=== PATIENT | female | born 1965 | race Caucasian/White ===

== ENCOUNTER 2017-08-27 11:01 | Observation (INO) ==
--- NOTE | 2017-08-27 11:15 | Emergency Department Note ---
Disposition Clinical Impression: Hyperglycemia Cellulitis Qualifiers: Site of cellulitis: buttock Qualified Code(s): L03.317 - Cellulitis of buttock Disposition: Admitted As Inpatient Condition: Fair SOB HPI - General Chief Complaint: ED General Medical Stated Complaint: "TAMMY, Possible DVT" Time Seen by Provider: 08/27/17 11:05 Source: patient, EMS, other (urgent care report) Mode of arrival: EMS Limitations: no limitations Nursing Notes Reviewed: Yes Vital Signs Reviewed: Yes - History of Present Illness Patient presents to the ED via EMS on referral from urgent care for chest discomfort and shortness of breath. Per urgent care report from Dr. Herzog patient is being sent appear for further evaluation of possible PE given a history of a recent superficial thrombosis and new onset chest pain and shortness of breath. Patient states she has been feeling short of breath since yesterday evening. She does have a history of COPD and a nebulizer treatment last night and again this morning without improvement. This morning she started experiencing chest discomfort that she describes as a intermittent squeezing sensation that is midsternal in location. She rates it an 8 out of 10. She states her shortness of breath worsens with exertion. Chest pain does not change. She reports feeling nauseous and lightheaded earlier but the symptoms are now gone. She never experienced any emesis. She reports some palpitations a week ago but none today. No fever or chills. She also reports that she has a "sore" on her buttocks that has been seeping. It has been going on for 2 weeks. States she has been cleaning the area with warm washcloth and applying an [id number] yeast cream that she got from the pharmacy without improvement. Patient has a history of COPD and CHF as well as hypertension. She wears 2 L of oxygen at home at night. Patient reports she has had some swelling in her right leg for a few weeks that has since improved. Review of records show she was seen here on 08/03 for the swelling. She had a negative d- dimer at that time and was given a shot shot of Lovenox. She had a right lower extremity venous duplex performed on 08/10 which showed only a superficial thrombosis in the lesser saphenous vein. Patient states she was told by the ED physician on the to start taking 81 mg of aspirin daily which she has been doing. She has not seen her PCP for follow-up since that time. She has no history of prior DVT or PE. - Related Data Home Medications Medication Instructions Recorded Confirmed Albuterol Sulfate [Ventolin Hfa] 2 puff IH Q4H PRN 01/24/16 08/27/17 Fluticasone Propionate Nasal 2 spray NS HS 01/24/16 08/27/17 [Flonase] Oxygen 2 l NS HS 04/17/16 08/27/17 Acetaminophen [Tylenol] 500 mg PO Q6HR PRN 08/10/16 08/27/17 Albuterol Neb [Proventil Neb] 2.5 mg IH Q4H PRN 08/10/16 08/27/17 Fluticasone/Vilanterol [Breo 1 puff IH DAILY 08/10/16 08/27/17 Ellipta 200-25 Mcg INH] Meloxicam [Mobic] 15 mg PO DAILY 08/10/16 08/27/17 Tiotropium [place] [Spiriva 2 puff IH DAILY 08/10/16 08/27/17 Respimat] Aspirin Enteric Coated [Aspirin EC] 81 mg PO DAILY 08/27/17 08/27/17 Previous Rx's Medication Instructions Recorded HYDROcodone/Acet 5/325 mg [[place] 1 tab PO Q6H 4 Days #14 tab 08/03/17 5-325 mg] Allergies Allergy/AdvReac Type Severity Reaction Status Date / Time Influenza Virus Vaccines Allergy Difficulty Verified 08/27/17 10:05 Breathing Pneumococcal Vaccine Allergy Difficulty Verified 08/27/17 10:05 Breathing Oxycodone AdvReac Dizziness Verified 08/27/17 10:05 Constitutional: Denies: fever, chills, weakness, weight change Eyes: Denies: eye pain, eye discharge, vision change ENT ED: Denies: ear pain, throat pain, dental pain, hearing loss, epistaxis, congestion, dysphagia Cardiovascular: Reports: as per HPI, chest pain, dyspnea on exertion. Denies: palpitations, edema, syncope Respiratory: Reports: cough, dyspnea. Denies: wheezes, hemoptysis, stridor, sputum production Gastrointestinal: Reports: nausea. Denies: abdominal pain, vomiting, diarrhea, constipation, hematemesis, melena, hematochezia Genitourinary: Denies: dysuria, frequency, hematuria, discharge Musculoskeletal: Denies: back pain, neck pain, arthralgia, myalgia Integumentary: Denies: rash, abrasion, lesions Neurological: Reports: other (lightheaded). Denies: headache, weakness, numbness, paresthesias, confusion, abnormal gait, vertigo Psychiatric: Denies: anxiety, depression, suicidal thoughts, homicidal thoughts , auditory hallucinations, visual hallucinations Endocrine: Denies: fatigue Hematological/Lymphatic: Denies: easy bleeding, easy bruising Allergic/Immunologic: Denies: facial swelling, urticaria Past Medical History - Past Medical History Medical history: Reports: arthritis, asthma, CHF, COPD, hypertension, other Surgical history: Reports: non-contributory, knee replacement, orthopedic, other , other Psychiatric history: Reports: anxiety [employer] history: Reports: no [employer] history - Social History Smoking Status: Current every day smoker Smokeless Tobacco Status: No Alcohol use: Reports: none Drug use: Reports: none Physical Exam - General Limitations: no limitations General appearance: alert, in no apparent distress - Head Head exam: atraumatic, normocephalic, normal inspection - Eye Eye exam: Present: normal appearance, PERRL, EOMI - ENT ENT exam: normal exam, normal oropharynx, mucous membranes moist - Neck Neck exam: Present: normal inspection, full ROM, trachea midline - Chest Chest inspection: Present: normal inspection, symmetric chest wall rise - Respiratory Respiratory exam: Present: normal lung sounds bilaterally. Absent: respiratory distress, wheezes, accessory muscle use - Cardiovascular Cardiovascular exam: Present: regular rate, normal rhythm, normal heart sounds - Abdominal Exam Abdominal exam: Present: soft, Non-Tender. Absent: tenderness, distention, guarding, rebound, rigidity - Extremities Exam Extremities exam: Present: normal inspection, full ROM, normal capillary refill. Absent: tenderness, pedal edema - Back Exam Back exam: Present: normal inspection, full ROM. Absent: tenderness - Neurological Exam Neurological exam: Present: alert, oriented X3 - Psychiatric Psychiatric exam: Present: normal affect, normal mood - Skin Skin exam: Present: erythema (warmth, superficial peeling and moist weeping of medial R buttock) Course Course Narrative: Patient presents to the ED on referral from urgent care for evaluation of chest pain and shortness breath with concern for possible PE given that patient was recently diagnosed with a superficial venous thrombosis. Review of records confirmed that her venous duplex on 08/10 did only show a thrombosis of the right lesser saphenous vein. Patient currently has no pain or swelling in the right lower extremity. She is slightly tachycardic and tachypnea on arrival but lungs are clear, she is not in any distress and oxygen saturation is 98% on room air. EKG on arrival shows a sinus tachycardia at 110 with left atrial enlargement. It is unchanged from her EKG 1 hour prior at urgent care. Will obtain chest x-ray and lab work including troponin and d-dimer. Physical exam is notable for significant right buttock cellulitis with weeping and drainage that will require antibiotic treatment. - Reevaluation(s) Reevaluation #1: Laboratory studies show a leukocytosis of 12.2 with 26% bands. D-dimer is elevated at 3192. Troponin is normal. BNP is slightly elevated at 228 and lactic acid is normal at 1.7. Chest x-ray did not show any acute pathology. Will start on clindamycin and draw blood cultures to begin treatment of her buttock cellulitis. Will obtain CTA of the chest for further evaluation of PE given the elevated d-dimer. Time: 12:43 Reevaluation #2: CTA of chest did not show a PE or any other acute pathology. Patient's glucose was 412. She denies any history of diabetes. She will be given IV fluids and insulin. Additional labs will be drawn to check for any indication of DKA or other complications of her hyperglycemia. Discussed with patient the need for admission for continued management of her hyperglycemia with initiation of a insulin regimen as well as continued antibiotic therapy for her cellulitis. Patient is in agreement. I spoke to the hospitalist on-call, Dr. Hernandez, who has agreed to accept the patient. Vital Signs Temperature 98.8 F 08/27/17 11:02 Pulse Rate 112 08/27/17 11:02 Respiratory Rate 24 08/27/17 11:02 Blood Pressure 135/61 08/27/17 11:02 O2 Sat by Pulse Oximetry 98 08/27/17 11:02 Temperature 97.5 F L 08/27/17 18:55 Pulse Rate 91 08/27/17 18:55 Respiratory Rate 18 08/27/17 18:55 Blood Pressure 100/58 08/27/17 18:55 O2 Sat by Pulse Oximetry 98 08/27/17 18:55 Oxygen Delivery Oxygen Delivery Room Air Shortness of Breath/Dyspnea - Differential Diagnosis Likely: acute exacerbation of chronic obstructive airways disease, congestive heart failure, pneumonia, pulmonary embolism. Unlikely: arrhythmia - Medical Records Medical records reviewed: Yes I reviewed the patient's medical records. - Lab Data Lab results reviewed: Yes I reviewed the patient's lab results. Result diagrams: 08/27/17 11:30 08/27/17 11:30 Lab Results 08/27/17 08/27/17 08/27/17 Range/Units 11:30 11:30 11:30 WBC 12.2 H (4.3-11.1) K/mcL RBC 4.68 (3.82-4.97) M/mcL Hgb 12.6 (11.5-15.4) g/dL Hct 39.7 (35.3-44.9) % MCV 84.8 (83.0-100.0) fL MCH 26.9 L (28.0-33.3) pg MCHC 31.7 (31.6-35.5) g/dL RDW 14.6 H (11.5-14.5) % Plt Count 268 (140-400) K/mcL MPV 11.2 (9.4-12.4) fL Seg Neutrophils % 46.0 % Band Neutrophils % 26.0 H (0-4) % Lymphocytes % 12.0 % Metamyelocytes % 12.0 H (0) % Myelocytes % 4.0 H (0) % Neutrophils # 8.8 (1.6-8.9) K/mcL Lymphocytes # 1.5 (0.6-4.6) K/mcL D-Dimer 3192 H (0-500) ng/mLFEU Sodium 132 L (136-145) mEq/L Potassium 3.9 (3.5-5.1) mEq/L Chloride 100 (98-107) mEq/L Carbon Dioxide 11 L (23-29) mEq/L BUN 13 (6-20) mg/dL Creatinine 0.73 (0.60-1.20) mg/dL Est GFR ( Amer) > 60 (> 60) Est GFR (Non-Af Amer) > 60 (> 60) BUN/Creatinine Ratio 18 (6-26) Glucose 412 H (70-105) mg/dL Est Mean Plasma Glucose mg/dl Hemoglobin A1c ( - 5.6) % Calculated Osmolality 292 (280-300) Lactic Acid (0.5-2.2) mmol/L Calcium 9.9 (8.6-10.3) mg/dL Troponin I < 0.03 (< 0.04) ng/mL B-Natriuretic Peptide (Less than 100) pg/mL Beta-Hydroxybutyric Acd (0.02-0.27) mmol/L 08/27/17 08/27/17 08/27/17 Range/Units 11:30 11:30 11:30 WBC (4.3-11.1) K/mcL RBC (3.82-4.97) M/mcL Hgb (11.5-15.4) g/dL Hct (35.3-44.9) % MCV (83.0-100.0) fL MCH (28.0-33.3) pg MCHC (31.6-35.5) g/dL RDW (11.5-14.5) % Plt Count (140-400) K/mcL MPV (9.4-12.4) fL Seg Neutrophils % % Band Neutrophils % (0-4) % Lymphocytes % % Metamyelocytes % (0) % Myelocytes % (0) % Neutrophils # (1.6-8.9) K/mcL Lymphocytes # (0.6-4.6) K/mcL D-Dimer (0-500) ng/mLFEU Sodium (136-145) mEq/L Potassium (3.5-5.1) mEq/L Chloride (98-107) mEq/L Carbon Dioxide (23-29) mEq/L BUN (6-20) mg/dL Creatinine (0.60-1.20) mg/dL Est GFR ( Amer) (> 60) Est GFR (Non-Af Amer) (> 60) BUN/Creatinine Ratio (6-26) Glucose (70-105) mg/dL Est Mean Plasma Glucose 390 mg/dl Hemoglobin A1c 15.2 H ( - 5.6) % Calculated Osmolality (280-300) Lactic Acid 1.7 (0.5-2.2) mmol/L Calcium (8.6-10.3) mg/dL Troponin I (< 0.04) ng/mL B-Natriuretic Peptide 228 H (Less than 100) pg/mL Beta-Hydroxybutyric Acd (0.02-0.27) mmol/L 08/27/17 Range/Units 14:08 WBC (4.3-11.1) K/mcL RBC (3.82-4.97) M/mcL Hgb (11.5-15.4) g/dL Hct (35.3-44.9) % MCV (83.0-100.0) fL MCH (28.0-33.3) pg MCHC (31.6-35.5) g/dL RDW (11.5-14.5) % Plt Count (140-400) K/mcL MPV (9.4-12.4) fL Seg Neutrophils % % Band Neutrophils % (0-4) % Lymphocytes % % Metamyelocytes % (0) % Myelocytes % (0) % Neutrophils # (1.6-8.9) K/mcL Lymphocytes # (0.6-4.6) K/mcL D-Dimer (0-500) ng/mLFEU Sodium (136-145) mEq/L Potassium (3.5-5.1) mEq/L Chloride (98-107) mEq/L Carbon Dioxide (23-29) mEq/L BUN (6-20) mg/dL Creatinine (0.60-1.20) mg/dL Est GFR ( Amer) (> 60) Est GFR (Non-Af Amer) (> 60) BUN/Creatinine Ratio (6-26) Glucose (70-105) mg/dL Est Mean Plasma Glucose mg/dl Hemoglobin A1c ( - 5.6) % Calculated Osmolality (280-300) Lactic Acid (0.5-2.2) mmol/L Calcium (8.6-10.3) mg/dL Troponin I (< 0.04) ng/mL B-Natriuretic Peptide (Less than 100) pg/mL Beta-Hydroxybutyric Acd > 2.00 H (0.02-0.27) mmol/L - Radiology Data Radiology results reviewed: Yes I reviewed the patient's radiology results. ITS Impressions Chest X-Ray 08/27/17 11:17 IMPRESSION: No acute process. D/ / 08/27/2017 11:43:43 Bro Majano MD / jackelyn Interpreting Provider: Bro Majano MD Chest CTA 08/27/17 12:15 IMPRESSION: 1. No evidence of pulmonary embolism or acute pulmonary abnormality. 2. Chronic interstitial changes. D/ / Urmila Keys / Urmila Keys Interpreting Provider: Urmila Keys - EKG Data EKG attestation: Yes I reviewed and interpreted this EKG. EKG shows normal: Reports: sinus rhythm Rate: Reports: tachycardia Rhythm: Reports: NSR [place]/QRS: Reports: normal Interpretation: Reports: no acute changes, nonspecific ST-T wave changes
[2017-08-27 11:51] LABS: Hematocrit 39.7 % (35.3-44.9); Hemoglobin 12.6 g/dL (11.5-15.4); Mean Corpuscular HGB Conc 31.7 g/dL (31.6-35.5); Mean Corpuscular Hemoglobin 26.9 pg (28.0-33.3); Mean Corpuscular Volume 84.8 fL (83.0-100.0); Mean Platelet Volume 11.2 fL (9.4-12.4); Platelet Count 268 K/mcL (140-400); Red Blood Count 4.68 M/mcL (3.82-4.97); Red Cell Distribution Width 14.6 % (11.5-14.5)
[2017-08-27 12:01] LABS: BUN/Creatinine Ratio 18 (6-26); Blood Urea Nitrogen 13 mg/dL (6-20); Calcium 9.9 mg/dL (8.6-10.3); Carbon Dioxide 11 mEq/L (23-29); Chloride 100 mEq/L (98-107); Glucose 412 mg/dL (70-105); Osmolality,Calculated 292 (280-300); Potassium 3.9 mEq/L (3.5-5.1); Sodium 132 mEq/L (136-145); eGFR For African Americans > 60 (> 60); eGFR For Non-African Americans > 60 (> 60)
[2017-08-27 12:02] LABS: Lymphocytes # 1.5 K/mcL (0.6-4.6); Neutrophils # 8.8 K/mcL (1.6-8.9)
[2017-08-27 12:05] LABS: Troponin I < 0.03 ng/mL (< 0.04)
[2017-08-27] MEDS ORDERED: Isovue-370 500 ML INFUS..BTL IV ONE ×2 (12:15→15:34)
[2017-08-27] MEDS ORDERED: Clindamycin 600 MG/50 ML 600 MG/50 ML IV.SOLN IVPB ONE (12:25)
[2017-08-27] MEDS ORDERED: 0.9 % Sodium Chloride 1,000 ML IVC ONE (14:06)
[2017-08-27] MEDS ORDERED: Insulin Regular, Human 100 UNIT/ML SQ ONE (14:09)
[2017-08-27] MEDS ORDERED: Naloxone 0.4 MG/ML INJ IVP PRN ×2 (14:32→15:34)
[2017-08-27] MEDS ORDERED: D5% in Water 1,000 ML IVC PRN ×2 (14:33→15:34)
[2017-08-27] MEDS ORDERED: *HR* Dextrose 50 % in Water (Syg) 50 ML SYRINGE IVP PRN ×2 (14:33→15:34)
[2017-08-27] MEDS ORDERED: Dextrose Gel 15 GM/37.5 ML TUBE PO PRN ×4 (14:33→15:34)
[2017-08-27] MEDS ORDERED: Albuterol 2.5 MG/3 ML NEBULIZER IH PRN (15:34)
[2017-08-27 16:04] LABS: VBG HCO3 13 mEq/L (21-27); VBG PCO2 31 mmHg (41-51); VBG PH 7.22 pH Units (7.32-7.42); VBG PO2 44 mmHg (25-50)
[2017-08-27] MEDS: *HR* HYDROcodone/Acet 5/325 mg TABLET PO SCH (16:23)
[2017-08-27] MEDS: Insulin LISPRO 300 UNITS/3 ML VIAL SQ SCH ×2 (16:24→20:53)
[2017-08-27] MEDS ORDERED: Insulin LISPRO 300 UNITS/3 ML VIAL SQ SCH ×2 (16:30→21:00)
[2017-08-27 17:23] LABS: Estimated Average Glucose 390 mg/dl; Hemoglobin A1C 15.2 %
--- NOTE | 2017-08-27 17:48 | Electrocardiograph Report ---
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
--- NOTE | 2017-08-27 19:26 | Internal Med History&Physical ---
Date of Encounter: 08/27/17 Time of Encounter: 18:50 Assessment and Plan (1) Cellulitis, gluteal, right Current visit: Yes Status: Acute She will be given IV Ancef and clindamycin with lactobacillus. CT will be done to further evaluate. (2) DKA (diabetic ketoacidoses) Current visit: Yes Status: Acute She will be started on IV fluids. IV insulin was given in emergency room. Blood sugars will be monitored. Qualifiers: Diabetes mellitus type: other specified (including MIGUEL) Diabetes mellitus complication detail: without coma Qualified Code(s): E13.10 - Other specified diabetes mellitus with ketoacidosis without coma (3) Low vitamin D level Current visit: Yes Status: Acute Recheck vitamin D level in a.m. (4) COPD (chronic obstructive pulmonary disease) Current visit: No Status: Chronic Continue inhalers and oxygen as needed. Qualifiers: COPD type: chronic bronchitis Chronic bronchitis type: unspecified Qualified Code(s): J42 - Unspecified chronic bronchitis (5) CHUY (obstructive sleep apnea) Current visit: No Status: Chronic Continue CPAP. Internal Medicine - H&P: HPI Chief complaint: Right gluteal infection Admitted From: Emergency Dept Plans for Post Hospital Care: Home History of present illness: Ms. Duke is a 52 year old female who was sent from a local urgent care to emergency room after she presented with dyspnea. She had venous duplex of legs August 10 which showed superficial thrombosis in the lesser saphenous vein. She has been taking OTC aspirin. She was sent from urgent care to emergency room to evaluate for possible pulmonary embolism. Chest CTA showed no PE. Lab work showed leukocytosis with left shift and probable DKA. She was not known diabetic. Examination showed severe cellulitis of the right gluteal area. She was admitted to MedSurg floor for ongoing care needs. Past Med Surg Social Fam HX - Past Medical History Medical history: arthritis, asthma, CHF, COPD, hypertension, other Additional medical history: anxiety, obesity, sleep apnea, tobacco use, joint pain, fatigue, hx lyme disease, DJD, OA, lumbar disc disease, lumbar spondylosis , ovarian mass - resolved, hirsutism Psychiatric history: anxiety - Past Surgical History Surgical History: non-contributory, knee replacement, orthopedic, other, other Additional surgical history: ear sx, nose sx, left knee scope, nerves sx in back, colonoscopy, vulvar bx. Left hip - Social History Smoking Status: Current every day smoker Packs per day: 1 Smokeless Tobacco Status: No Alcohol use: none Drug use: none Internal Medicine - H&P: Meds Albuterol Sulfate [Ventolin Hfa] 2 puff IH Q4H PRN 01/24/16 [History] Fluticasone Propionate Nasal [Flonase] 2 spray NS HS 01/24/16 [History] Oxygen 2 l NS HS 04/17/16 [History] Acetaminophen [Tylenol] 500 mg PO Q6HR PRN 08/10/16 [History] Albuterol Neb [Proventil Neb] 2.5 mg IH Q4H PRN 08/10/16 [History] Fluticasone/Vilanterol [Breo Ellipta 200-25 Mcg INH] 1 puff IH DAILY 08/10/16 [ History] Meloxicam [Mobic] 15 mg PO DAILY 08/10/16 [History] Tiotropium [place] [Spiriva Respimat] 2 puff IH DAILY 08/10/16 [History] HYDROcodone/Acet 5/325 mg [[place] 5-325 mg] 1 tab PO Q6H 4 Days #14 tab 08/03/17 [Rx] Aspirin Enteric Coated [Aspirin EC] 81 mg PO DAILY 08/27/17 [History] 3 Allergy/AdvReac Type Severity Reaction Status Date / Time Influenza Virus Vaccines Allergy Difficulty Verified 08/27/17 10:05 Breathing Pneumococcal Vaccine Allergy Difficulty Verified 08/27/17 10:05 Breathing Oxycodone AdvReac Dizziness Verified 08/27/17 10:05 All Systems PM: A 10-system review of systems was performed and is negative for pertinent findings except as documented above in the HPI. Review of systems: Gen.: She states her weight has decreased from approximately 267 pounds 6 months ago to presently if 232 pounds, unintentionally Cardiovascular: She denies hypertension PR heart failure angina DVT or pulmonary embolus. She had superficial thrombosis of the right lesser saphenous vein diagnosed August 10. Respiratory: She has smoked since age 12 up to 2 packs per day. She had PFTs several years ago and was told she had COPD. She uses oxygen at bedtime and when necessary during the daytime. She has CHUY and uses CPAP at at bedtime. GI: She denies disorders of her liver gallbladder or exocrine pancreas : She denies hematuria dysuria or kidney stones Neurologic: She denies large distribution strokes or seizures. Endocrine: She denies previous diabetes diagnosis. Blood sugar was 425 mg percent on 08/03/2017. She denies thyroid disease or hyperlipidemia. She had low vitamin D level of 15 on 09/22/2016. Hematology/oncology: She denies blood disorders cancers or anemia Psychiatric: She denies anxiety depression or other mental health issues [place] skeletal: She has DJD. She had left total knee replacement 2013 and left total hip replacement 2016. She denies gout. - Constitutional Vitals: Temp Pulse Resp BP Pulse Ox 97.5 F L 91 18 100/58 98 08/27/17 18:55 08/27/17 18:55 08/27/17 18:55 08/27/17 18:55 08/27/17 18:55 Exam: Gen.: She is well-developed overweight female lying in bed who appears in mild to moderate discomfort on movement of the right hip area HEENT: Head is atraumatic and normocephalic. Eyes: EOMI. There is no scleral icterus. Mouth: Mucosa is dry. Neck: Supple and nontender. There is no thyromegaly or adenopathy noted. Heart: Regular without murmurs gallops or ectopics Lungs: No wheezes or crackles are heard. Abdomen: Soft and nontender. No masses or guarding are noted. Extremities: There is no cyanosis edema or clubbing noted. Dorsalis pedis and posttibial pulses are 1-2 over 2 bilaterally. Neurologic: Mental status: She is talkative and a good historian. Cranial nerves: Smile is symmetric. Forehead wrinkles bilaterally. Tongue protrudes midline. EOMI. Motor: There is no pronator drift. Cerebellar: Finger to nose is intact bilaterally. Skin: She has significant erythema and induration of the right lower gluteal area. There is significant tenderness to palpation. Internal Med - H&P Results - Labs CBC & Chem 7: 08/27/17 11:30 08/27/17 11:30 - ABG Interpretation ABG results: 08/27/17 16:01 VBG pH 7.22 L VBG pCO2 31 L VBG pO2 44 VBG HCO3 13 L - VTE Reasons for not Prescribing Prophylaxis: Treatment not Indicated - Low risk for VTE
[2017-08-27] MEDS: ceFAZolin 2,000 MG in Water for inj. (sterile) 20 ML 20 ML IVP SCH (20:36)
[2017-08-27] MEDS: Lactobacillus 1 EACH CAP.SPRINK PO SCH (20:36)
[2017-08-27] MEDS: Clindamycin 600 MG/50 ML 600 MG/50 ML IV.SOLN IVPB SCH (20:45)
[2017-08-27] MEDS: 0.9 % Sodium Chloride w KCl 20 MEQ/1,000 ML MLS IVC SCH (20:46)
[2017-08-28] MEDS: Fluticasone Propionate Nasal 50 MCG/SPRAY BOTTLE NS SCH ×2 (00:27→20:23)
[2017-08-28] MEDS: *HR* HYDROcodone/Acet 5/325 mg TABLET PO SCH ×5 (04:32→20:24)
[2017-08-28] MEDS: ceFAZolin 2,000 MG in Water for inj. (sterile) 20 ML 20 ML IVP SCH ×4 (04:52→20:20)
[2017-08-28] MEDS: Clindamycin 600 MG/50 ML 600 MG/50 ML IV.SOLN IVPB SCH ×3 (04:53→20:13)
[2017-08-28 08:01] LABS: Hematocrit 35.6 % (35.3-44.9); Hemoglobin 11.5 g/dL (11.5-15.4); Mean Corpuscular HGB Conc 32.3 g/dL (31.6-35.5); Mean Corpuscular Hemoglobin 26.8 pg (28.0-33.3); Mean Platelet Volume 11.1 fL (9.4-12.4); Platelet Count 255 K/mcL (140-400); Red Blood Count 4.29 M/mcL (3.82-4.97); Red Cell Distribution Width 14.6 % (11.5-14.5)
[2017-08-28 08:19] LABS: Alanine Aminotransferase 5 Units/L (7-52); Albumin 2.6 g/dL (3.5-5.7); Albumin/Globulin Ratio 0.8 (1.1-2.2); Alkaline Phosphatase 84 Units/L (34-104); Aspartate Amino Transferase 5 Units/L (13-39); BUN/Creatinine Ratio 21 (6-26); Bilirubin,Total 0.4 mg/dL (0.3-1.0); Blood Urea Nitrogen 11 mg/dL (6-20); Calcium 8.8 mg/dL (8.6-10.3); Carbon Dioxide 16 mEq/L (23-29); Chloride 104 mEq/L (98-107); Globulin 3.3 g/dL (2.4-3.5); Glucose 318 mg/dL (70-105); Osmolality,Calculated 290 (280-300); Potassium 3.6 mEq/L (3.5-5.1); Sodium 134 mEq/L (136-145); Total Protein 5.9 g/dL (6.4-8.9); eGFR For African Americans > 60 (> 60); eGFR For Non-African Americans > 60 (> 60)
[2017-08-28 08:19] LABS: Magnesium 1.4 mg/dL (1.6-2.6); Phosphorous 2.7 mg/dL (2.7-4.5)
[2017-08-28] MEDS: Lactobacillus 1 EACH CAP.SPRINK PO SCH ×2 (08:38→20:12)
[2017-08-28] MEDS: Aspirin Enteric Coated 81 MG Tablet PO SCH (08:38)
[2017-08-28] MEDS: Insulin LISPRO 300 UNITS/3 ML VIAL SQ SCH ×4 (08:39→20:19)
[2017-08-28] MEDS: 0.9 % Sodium Chloride w KCl 20 MEQ/1,000 ML MLS IVC SCH ×3 (08:40→18:37)
[2017-08-28 08:51] LABS: Thyroid Stimulating Hormone 1.125 mcIU/mL (0.340-5.600)
[2017-08-28] MEDS ORDERED: NON-FORMULARY MEDICATION 1 EACH EACH (Tiotropium Bromide [Spiriva Respimat] 2 PUFF) IH SCH (09:00)
--- NOTE | 2017-08-28 09:11 | Internal Med Progress Note ---
Date of Encounter: 08/28/17 Time of Encounter: 09:05 - Assessment and plan (1) Cellulitis, gluteal, right Current Visit: Yes Status: Acute Assessment and plan: August 28. Continue Ancef, clindamycin, and lactobacillus. CT scan showed no abscess. (2) DKA (diabetic ketoacidoses) Current Visit: Yes Status: Acute Assessment and plan: August 28. Improved. Continue IV fluids. Will give Levemir and continue Accu- Cheks with SSI. Qualifiers: Diabetes mellitus type: other specified (including MIGUEL) Diabetes mellitus complication detail: without coma Qualified Code(s): E13.10 - Other specified diabetes mellitus with ketoacidosis without coma (3) Low vitamin D level Current Visit: Yes Status: Acute Assessment and plan: August 28. Recheck vitamin D level. (4) COPD (chronic obstructive pulmonary disease) Current Visit: No Status: Chronic Assessment and plan: August 28. Continue inhalers and oxygen as needed. Qualifiers: COPD type: chronic bronchitis Chronic bronchitis type: unspecified Qualified Code(s): J42 - Unspecified chronic bronchitis (5) CHUY (obstructive sleep apnea) Current Visit: No Status: Chronic Assessment and plan: August 28. Continue CPAP (6) Hypomagnesemia Current Visit: Yes Status: Acute Assessment and plan: August 28. Will give magnesium oxide supplement. - Subjective Interval history: August 28. She has no new complaints and feels better. - Constitutional Vitals: Temp Pulse Resp BP Pulse Ox 98.3 F 81 16 112/64 94 08/28/17 06:46 08/28/17 06:46 08/28/17 06:46 08/28/17 06:46 08/28/17 06:46 Exam: She is ambulating to the bathroom and appears in significantly less pain than yesterday. Her affect is bright and cheerful. I reviewed her medications. I reviewed pertinent lab results and CT report with her. Internal Medicine: Result - Labs CBC & Chem 7: 08/28/17 07:34 08/28/17 07:34 Labs: Short CBC 08/28/17 Range/Units 07:34 WBC 10.3 (4.3-11.1) K/mcL Hgb 11.5 (11.5-15.4) g/dL Hct 35.6 (35.3-44.9) % Plt Count 255 (140-400) K/mcL BMP 08/28/17 07:34 Sodium 134 L Potassium 3.6 Chloride 104 Carbon Dioxide 16 L BUN 11 Creatinine 0.52 L Glucose 318 H Calcium 8.8 Liver Function 08/28/17 Range/Units 07:34 Total Bilirubin 0.4 (0.3-1.0) mg/dL AST 5 L (13-39) Units/L ALT 5 L (7-52) Units/L Alkaline Phosphatase 84 (34-104) Units/L Albumin 2.6 L (3.5-5.7) g/dL - ABG Interpretation ABG results: PT/INR, D-dimer D-Dimer 3192 ng/mLFEU (0-500) H 08/27/17 11:30 - Impressions Impressions Abdomen/Pelvis CT 08/27/17 19:22 IMPRESSION: Multifocal stranding in the subcutaneous fat of the right hemipelvis extending into the right posterior lower lumbar region and extending into the right lower extremity as well as the rightward aspect of the perineum. There is extension of inflammatory change/edema into the ischial rectal fossa on the right. There is no defined abscess in this region. Findings are concerning for cellulitis. Minimal fluid is noted medial to the spleen extending to the superior aspect of the pericolic gutter. Additional abdomen pelvis findings as described above. Minimal pericardial fluid. D/ / Felipe Winters / Felipe Winters Interpreting Provider: Felipe Winters - VTE Reasons for not Prescribing Prophylaxis: Treatment not Indicated - Low risk for VTE Consult Discharge Plan - Plan Referrals: Eugene Serrato MD [Primary Care Provider] - 1 week
[2017-08-28 10:16] LABS: Lymphocytes # 1.2 K/mcL (0.6-4.6); Monocytes # 1.4 K/mcL (0.0-1.3); Neutrophils # 7.4 K/mcL (1.6-8.9)
[2017-08-28 10:18] LABS: Anisocytosis 1+ (Not Present); Polychromasia 1+ (Not Present)
[2017-08-28 10:19] LABS: Dohle Bodies Present (Not Present); Toxic Granulation Present (Not Present); Toxic Vacuolation Present (Not Present)
[2017-08-28] MEDS: Tiotropium 18 MCG inhalation IH SCH (10:54)
[2017-08-28] MEDS: Insulin DETEMIR 100 UNIT/ML X5UNITS SQ SCH ×2 (12:02→20:19)
[2017-08-28] MEDS: BREO ELLIPTA IH SCH (12:02)
[2017-08-28] MEDS: Magnesium Oxide 400 MG TABLET PO SCH ×2 (12:05→20:12)
[2017-08-29] MEDS: ceFAZolin 2,000 MG in Water for inj. (sterile) 20 ML 20 ML IVP SCH (04:15)
[2017-08-29] MEDS: *HR* HYDROcodone/Acet 5/325 mg TABLET PO SCH ×4 (04:18→22:16)
[2017-08-29] MEDS: Clindamycin 600 MG/50 ML 600 MG/50 ML IV.SOLN IVPB SCH ×3 (04:42→21:46)
[2017-08-29] MEDS: 0.9 % Sodium Chloride w KCl 20 MEQ/1,000 ML MLS IVC SCH ×2 (04:43→16:36)
[2017-08-29 06:30] LABS: Hematocrit 33.5 % (35.3-44.9); Hemoglobin 10.8 g/dL (11.5-15.4); Mean Corpuscular HGB Conc 32.2 g/dL (31.6-35.5); Mean Corpuscular Hemoglobin 26.5 pg (28.0-33.3); Mean Corpuscular Volume 82.3 fL (83.0-100.0); Mean Platelet Volume 11.2 fL (9.4-12.4); Platelet Count 234 K/mcL (140-400); Red Blood Count 4.07 M/mcL (3.82-4.97); Red Cell Distribution Width 14.7 % (11.5-14.5)
[2017-08-29 06:51] LABS: BUN/Creatinine Ratio 26 (6-26); Blood Urea Nitrogen 14 mg/dL (6-20); Calcium 8.7 mg/dL (8.6-10.3); Carbon Dioxide 21 mEq/L (23-29); Chloride 105 mEq/L (98-107); Glucose 399 mg/dL (70-105); Osmolality,Calculated 295 (280-300); Potassium 3.3 mEq/L (3.5-5.1); Sodium 134 mEq/L (136-145); eGFR For African Americans > 60 (> 60); eGFR For Non-African Americans > 60 (> 60)
[2017-08-29 07:46] LABS: Monocytes # 0.9 K/mcL (0.0-1.3); Neutrophils # 4.8 K/mcL (1.6-8.9)
[2017-08-29 07:47] LABS: Anisocytosis 1+ (Not Present); Large Platelets Present (Not Present); Platelet Clumps Few (Not Present); Platelet Estimate Normal (Normal); Toxic Granulation Present (Not Present); Toxic Vacuolation Present (Not Present)
[2017-08-29 07:48] LABS: Dohle Bodies Present (Not Present); Polychromasia 1+ (Not Present)
[2017-08-29] MEDS: Insulin LISPRO 300 UNITS/3 ML VIAL SQ SCH ×4 (07:55→21:58)
[2017-08-29] MEDS: Magnesium Oxide 400 MG TABLET PO SCH ×2 (07:59→21:47)
[2017-08-29] MEDS: Insulin DETEMIR 100 UNIT/ML X5UNITS SQ SCH ×2 (07:59→21:47)
[2017-08-29] MEDS: Lactobacillus 1 EACH CAP.SPRINK PO SCH ×2 (07:59→21:47)
[2017-08-29] MEDS: Aspirin Enteric Coated 81 MG Tablet PO SCH (07:59)
[2017-08-29] MEDS: Tiotropium 18 MCG inhalation IH SCH (09:31)
--- NOTE | 2017-08-29 10:45 | Internal Med Progress Note ---
Date of Encounter: 08/29/17 Time of Encounter: 10:30 - Assessment and plan (1) Cellulitis, gluteal, right Current Visit: Yes Status: Acute Assessment and plan: August 28. Continue Ancef, clindamycin, and lactobacillus. CT scan showed no abscess. (2) DKA (diabetic ketoacidoses) Current Visit: Yes Status: Acute Assessment and plan: August 28. Improved. Continue IV fluids. Will give Levemir and continue Accu- Cheks with SSI. August 29. Resolved. Continue IV fluids but decrease rate. Increase Levemir and start metformin. Continue Accu-Cheks with SSI. Qualifiers: Diabetes mellitus type: other specified (including MIGUEL) Diabetes mellitus complication detail: without coma Qualified Code(s): E13.10 - Other specified diabetes mellitus with ketoacidosis without coma (3) Low vitamin D level Current Visit: Yes Status: Acute Assessment and plan: August 28. Recheck vitamin D level. (4) COPD (chronic obstructive pulmonary disease) Current Visit: No Status: Chronic Assessment and plan: August 28. Continue inhalers and oxygen as needed. Qualifiers: COPD type: chronic bronchitis Chronic bronchitis type: unspecified Qualified Code(s): J42 - Unspecified chronic bronchitis (5) CHUY (obstructive sleep apnea) Current Visit: No Status: Chronic Assessment and plan: August 28. Continue CPAP (6) Hypomagnesemia Current Visit: Yes Status: Acute Assessment and plan: August 28. Will give magnesium oxide supplement. - Subjective Interval history: August 28. She has no new complaints and feels better. August 29. She has no new complaints. - Constitutional Vitals: Temp Pulse Resp BP Pulse Ox 98.2 F 86 18 102/58 96 08/29/17 06:19 08/29/17 06:19 08/29/17 06:19 08/29/17 06:19 08/29/17 06:19 Exam: She is resting comfortably in bed and appears in no acute distress. The right lower gluteal area shows less induration and redness. I reviewed her medications. I discussed pertinent lab results with patient. Internal Medicine: Result - Labs CBC & Chem 7: 08/29/17 05:15 08/29/17 05:15 Labs: Short CBC 08/29/17 Range/Units 05:15 WBC 7.8 (4.3-11.1) K/mcL Hgb 10.8 L (11.5-15.4) g/dL Hct 33.5 L (35.3-44.9) % Plt Count 234 (140-400) K/mcL Neutrophils # 4.8 (1.6-8.9) K/mcL BMP 08/29/17 05:15 Sodium 134 L Potassium 3.3 L Chloride 105 Carbon Dioxide 21 L BUN 14 Creatinine 0.54 L Glucose 399 H Calcium 8.7 - ABG Interpretation ABG results: PT/INR, D-dimer D-Dimer 3192 ng/mLFEU (0-500) H 08/27/17 11:30 - VTE Reasons for not Prescribing Prophylaxis: Treatment not Indicated - Low risk for VTE Consult Discharge Plan - Plan Referrals: Eugene Serrato MD [Primary Care Provider] - 1 week
[2017-08-29] MEDS: BREO ELLIPTA IH SCH (10:50)
[2017-08-29] MEDS: ceFAZolin 2,000 MG in D5% in Water 100 ML IVPB SCH ×2 (14:02→22:15)
[2017-08-29] MEDS: *HR* Metformin 500 MG TABLET PO SCH (16:34)
[2017-08-29] MEDS: Fluticasone Propionate Nasal 50 MCG/SPRAY BOTTLE NS SCH (21:59)
[2017-08-30] MEDS: Clindamycin 600 MG/50 ML 600 MG/50 ML IV.SOLN IVPB SCH (05:50)
[2017-08-30] MEDS: 0.9 % Sodium Chloride w KCl 20 MEQ/1,000 ML MLS IVC SCH (05:50)
[2017-08-30] MEDS: ceFAZolin 2,000 MG in D5% in Water 100 ML IVPB SCH (05:51)
[2017-08-30] MEDS: *HR* HYDROcodone/Acet 5/325 mg TABLET PO SCH (05:51)
[2017-08-30 07:05] LABS: Hematocrit 31.7 % (35.3-44.9); Hemoglobin 10.4 g/dL (11.5-15.4); Mean Corpuscular HGB Conc 32.8 g/dL (31.6-35.5); Mean Corpuscular Hemoglobin 26.7 pg (28.0-33.3); Mean Corpuscular Volume 81.5 fL (83.0-100.0); Mean Platelet Volume 11.2 fL (9.4-12.4); Platelet Count 238 K/mcL (140-400); Red Blood Count 3.89 M/mcL (3.82-4.97); Red Cell Distribution Width 14.9 % (11.5-14.5)
[2017-08-30 07:35] LABS: BUN/Creatinine Ratio 22 (6-26); Blood Urea Nitrogen 10 mg/dL (6-20); Calcium 8.5 mg/dL (8.6-10.3); Carbon Dioxide 22 mEq/L (23-29); Chloride 105 mEq/L (98-107); Glucose 279 mg/dL (70-105); Magnesium 1.4 mg/dL (1.6-2.6); Osmolality,Calculated 293 (280-300); Potassium 3.2 mEq/L (3.5-5.1); Sodium 137 mEq/L (136-145); eGFR For African Americans > 60 (> 60); eGFR For Non-African Americans > 60 (> 60)
[2017-08-30] MEDS: Magnesium Oxide 400 MG TABLET PO SCH (07:57)
[2017-08-30] MEDS: *HR* Metformin 500 MG TABLET PO SCH (07:57)
[2017-08-30] MEDS: Lactobacillus 1 EACH CAP.SPRINK PO SCH (07:57)
[2017-08-30] MEDS: Aspirin Enteric Coated 81 MG Tablet PO SCH (07:58)
[2017-08-30] MEDS: Insulin LISPRO 300 UNITS/3 ML VIAL SQ SCH (07:58)
[2017-08-30 07:59] LABS: Lymphocytes # 2.7 K/mcL (0.6-4.6); Neutrophils # 3.6 K/mcL (1.6-8.9); Platelet Estimate Normal (Normal); Toxic Granulation Present (Not Present)
[2017-08-30 08:06] VITALS: BP 123/64
[2017-08-30] MEDS: Insulin DETEMIR 100 UNIT/ML X5UNITS SQ SCH (09:09)
[2017-08-30 09:36] LABS: % Iron Saturation 7 % (15-50); Iron 16 mcg/dL (50-170); Transferrin 174 mg/dL (203-362)
[2017-08-30] MEDS: Tiotropium 18 MCG inhalation IH SCH (09:42)
[2017-08-30 09:54] LABS: Ferritin 276 ng/mL (10-120)
[2017-08-30] MEDS: BREO ELLIPTA IH SCH (09:54)
[2017-08-30 09:59] LABS: Folate 12.6 ng/mL (3.0-16.0)
--- NOTE | 2017-08-30 10:22 | Discharge Summary ---
Orders not resulted at time of discharge: Pending orders 08/30/17 06:00 Vitamin D 25 Hydroxy AM 0400 Date of Encounter: 08/30/17 Time of Encounter: 10:05 - Discharge Diagnosis (1) Cellulitis, gluteal, right Priority: Primary Status: Acute (2) DKA (diabetic ketoacidoses) Priority: Secondary Status: Resolved Qualifiers: Diabetes mellitus type: other specified (including MIGUEL) Diabetes mellitus complication detail: without coma Qualified Code(s): E13.10 - Other specified diabetes mellitus with ketoacidosis without coma (3) Low vitamin D level Priority: Secondary Status: Acute (4) COPD (chronic obstructive pulmonary disease) Priority: Secondary Status: Chronic Qualifiers: COPD type: chronic bronchitis Chronic bronchitis type: unspecified Qualified Code(s): J42 - Unspecified chronic bronchitis (5) CHUY (obstructive sleep apnea) Priority: Secondary Status: Chronic (6) Hypomagnesemia Priority: Secondary Status: Acute Hospital course: Ms. Duke is a 52 year old female who was sent from a local urgent care to emergency room after she presented with dyspnea. She had venous duplex of legs August 10 which showed superficial thrombosis in the lesser saphenous vein. She has been taking OTC aspirin. She was sent from urgent care to emergency room to evaluate for possible pulmonary embolism. Chest CTA showed no PE. Lab work showed leukocytosis with left shift and probable DKA. She was not known diabetic. Examination showed severe cellulitis of the right gluteal area. [facility] was [facility] floor for ongoing care needs. Initial orders were written by the emergency room physician. I saw her on August 27 and performed a history and physical. She was given IV Ancef and clindamycin and Lactobacillus. CT was done to further evaluate the right gluteal area. No abscess was seen. She had gradual improvement of the area. WBC normalized and left shift improved. She will continue with antibiotic and probiotic for 7 days after discharge. IV fluids and insulin were started. Her DKA resolved. Hemoglobin A1c was significantly elevated at 15.2%. She will be given Basaglar 50 units daily and metformin 1000 milligrams twice a day at discharge. Diabetic teaching was done. Her PCP can monitor. Anemia testing showed iron 16, transferrin saturation 7%, transferrin 174, ferritin 276, B12 748, and folate 12.6. She was started on ferrous sulfate with vitamin C. TSH returned normal at 1.125. Magnesium returned normal at 1.4. She was started on magnesium oxide and given a 7 day prescription for this at discharge. Her PCP can monitor. She had significant improvement in her pain and on August 30 felt stable for discharge home. She will follow with her PCP Dr. Eugene Serrato within 1 week. I encouraged her to become a nonsmoker. She has oxygen at home. - Time Spent with Patient Total time spent providing and/or coordinating discharge services: - Discharge Medications Prescriptions: Ascorbic Acid [C-500] 500 mg PO DAILY #30 tablet cephALEXin [Keflex] 500 mg PO TID #21 capsule Clindamycin HCl 300 mg PO Q8H #21 capsule Ferrous Sulfate 325 mg PO DAILY #30 tablet Insulin Glargine,Hum.rec.anlog [Basaglar Kwikpen U-100] 50 unit SQ DAILY #1 insuln.pen Lactobacillus [Culturelle] 1 each PO BID #14 cap.sprink Magnesium Oxide [Mag-Ox] 400 mg PO BID #14 tablet metFORMIN [Glucophage] 1,000 mg PO BIDWM #120 tablet Home Medications: Albuterol Sulfate [Ventolin Hfa] 2 puff IH Q4H PRN 01/24/16 [History] Fluticasone Propionate Nasal [Flonase] 2 spray NS HS 01/24/16 [History] Oxygen 2 l NS HS 04/17/16 [History] Acetaminophen [Tylenol] 500 mg PO Q6HR PRN 08/10/16 [History] Albuterol Neb [Proventil Neb] 2.5 mg IH Q4H PRN 08/10/16 [History] Fluticasone/Vilanterol [Breo Ellipta 200-25 Mcg INH] 1 puff IH DAILY 08/10/16 [ History] Tiotropium [place] [Spiriva Respimat] 2 puff IH DAILY 08/10/16 [History] HYDROcodone/Acet 5/325 mg [[place] 5-325 mg] 1 tab PO Q6H 4 Days #14 tab 08/03/17 [Rx] Aspirin Enteric Coated [Aspirin EC] 81 mg PO DAILY 08/27/17 [History] Ascorbic Acid [C-500] 500 mg PO DAILY #30 tablet 08/30/17 [Rx] Clindamycin HCl 300 mg PO Q8H #21 capsule 08/30/17 [Rx] Ferrous Sulfate 325 mg PO DAILY #30 tablet 08/30/17 [Rx] Insulin Glargine,Hum.rec.anlog [Basaglar Kwikpen U-100] 50 unit SQ DAILY #1 insuln.pen 08/30/17 [Rx] Lactobacillus [Culturelle] 1 each PO BID #14 cap.sprink 08/30/17 [Rx] Magnesium Oxide [Mag-Ox] 400 mg PO BID #14 tablet 08/30/17 [Rx] cephALEXin [Keflex] 500 mg PO TID #21 capsule 08/30/17 [Rx] metFORMIN [Glucophage] 1,000 mg PO BIDWM #120 tablet 08/30/17 [Rx] Allergies/Adverse Reactions: 3 Allergy/AdvReac Type Severity Reaction Status Date / Time Influenza Virus Vaccines Allergy Difficulty Verified 08/27/17 10:05 Breathing Pneumococcal Vaccine Allergy Difficulty Verified 08/27/17 10:05 Breathing Oxycodone AdvReac Dizziness Verified 08/27/17 10:05 Date of admission: 08/27/17 15:06 Primary care physician: Eugene Serrato MD Consults: 08/29/17 10:41 Consult to Diabetes Education [CONS] Routine Comment: Reason for Consult: New dx DM2 - Constitutional Vitals: Temp Pulse Resp BP Pulse Ox 97.9 F 81 16 123/64 97 08/30/17 08:04 08/30/17 08:04 08/30/17 08:04 08/30/17 08:04 08/30/17 08:04 - Patient Status Disposition: Home, Self-Care Condition: Fair Overall status at discharge: patient is progressing back to baseline - Discharge Instructions Follow Up With: Eugene Serrato MD [Primary Care Provider] - 1 week - Diet and Activity Activity: resume usual activities as tolerated Diet: diabetic diet - VTE Reasons for not Prescribing Prophylaxis: Treatment not Indicated - Low risk for VTE
--- NOTE | 2017-08-30 10:49 | Physician Discharge Referral ---
Home Health/Hosp Referral Info Transfer to: Home Health Attending Provider: David Provider in Charge Post Discharge: PCP (Eugene Serrato M.D.) - Diagnosis (1) Cellulitis, gluteal, right Priority: Primary Status: Acute (2) DKA (diabetic ketoacidoses) Priority: Secondary Status: Resolved (3) Low vitamin D level Priority: Secondary Status: Acute (4) COPD (chronic obstructive pulmonary disease) Priority: Secondary Status: Chronic (5) CHUY (obstructive sleep apnea) Priority: Secondary Status: Chronic (6) Hypomagnesemia Priority: Secondary Status: Acute - Respiratory Orders Smoking Cessation: Smoking cessation has been advised. For more information, call the [place] Tobacco Quit Line at 5-614-TYCS-NOW. - Diet/Nutrition Diet/Nutrition Orders: No Concentrated Sweets - Activity Activity Orders: Ambulate - Services Needed Following services are medically necessary services: Nursing, Home Health Aide, Physical Therapy, Occupational Therapy Home Care Orders: Monitor results of Accu-Cheks before meals and at bedtime - Transfer Medications Prescriptions: Ascorbic Acid [C-500] 500 mg PO DAILY #30 tablet cephALEXin [Keflex] 500 mg PO TID #21 capsule Clindamycin HCl 300 mg PO Q8H #21 capsule Ferrous Sulfate 325 mg PO DAILY #30 tablet Insulin Glargine,Hum.rec.anlog [Basaglar Kwikpen U-100] 50 unit SQ DAILY #1 insuln.pen Lactobacillus [Culturelle] 1 each PO BID #14 cap.sprink Magnesium Oxide [Mag-Ox] 400 mg PO BID #14 tablet metFORMIN [Glucophage] 1,000 mg PO BIDWM #120 tablet Home Medications: Albuterol Sulfate [Ventolin Hfa] 2 puff IH Q4H PRN 01/24/16 [History] Fluticasone Propionate Nasal [Flonase] 2 spray NS HS 01/24/16 [History] Oxygen 2 l NS HS 04/17/16 [History] Acetaminophen [Tylenol] 500 mg PO Q6HR PRN 08/10/16 [History] Albuterol Neb [Proventil Neb] 2.5 mg IH Q4H PRN 08/10/16 [History] Fluticasone/Vilanterol [Breo Ellipta 200-25 Mcg INH] 1 puff IH DAILY 08/10/16 [ History] Tiotropium [place] [Spiriva Respimat] 2 puff IH DAILY 08/10/16 [History] HYDROcodone/Acet 5/325 mg [[place] 5-325 mg] 1 tab PO Q6H 4 Days #14 tab 08/03/17 [Rx] Aspirin Enteric Coated [Aspirin EC] 81 mg PO DAILY 08/27/17 [History] Ascorbic Acid [C-500] 500 mg PO DAILY #30 tablet 08/30/17 [Rx] Clindamycin HCl 300 mg PO Q8H #21 capsule 08/30/17 [Rx] Ferrous Sulfate 325 mg PO DAILY #30 tablet 08/30/17 [Rx] Insulin Glargine,Hum.rec.anlog [Basaglar Kwikpen U-100] 50 unit SQ DAILY #1 insuln.pen 08/30/17 [Rx] Lactobacillus [Culturelle] 1 each PO BID #14 cap.sprink 08/30/17 [Rx] Magnesium Oxide [Mag-Ox] 400 mg PO BID #14 tablet 08/30/17 [Rx] cephALEXin [Keflex] 500 mg PO TID #21 capsule 08/30/17 [Rx] metFORMIN [Glucophage] 1,000 mg PO BIDWM #120 tablet 08/30/17 [Rx] Allergies/Adverse Reactions: 3 Allergy/AdvReac Type Severity Reaction Status Date / Time Influenza Virus Vaccines Allergy Difficulty Verified 08/27/17 10:05 Breathing Pneumococcal Vaccine Allergy Difficulty Verified 08/27/17 10:05 Breathing Oxycodone AdvReac Dizziness Verified 08/27/17 10:05 Certification: Further, I certify that my clinical findings support that this patient is homebound (i.e. absences from home require considerable and taxing effort and are for medical reasons or [employer] or infrequently or short duration when for other reasons) because: Homebound Reason: Leaving home requires considerable and taxing effort due to condition (Pain on walking from gluteal cellulitis, new DM 2 diagnoses) Attestation: My signature below is to certify that this patient is under my care and that I, or nurse practitioner, or a physician's bioinformatics assistant working with me, has a face-to -face encounter with this patient.
[2017-08-30] MEDS ORDERED: ceFAZolin 2,000 MG in Water for inj. (sterile) 20 ML 20 ML IVPB SCH (14:00)
== END 2017-08-30 11:45 | disposition home or self-care (01) ==
LOC: EMEROOPIK 11:01 → INPPIK 11:01
PROVIDERS: ADMIT Internal Medicine; ATTEND Internal Medicine